=== PATIENT | male | born 2000 | race Caucasian/White ===

== ENCOUNTER 2020-09-06 16:41 | Emergency (ER) | payer OTHER ==
[2020-09-06] MEDS ORDERED: VIBRAMYCIN100 MG PO (20:42)
[2020-09-10 16:10] LABS: CHLAMYDIA BY NAA Negative (Negative); GONOCOCCUS BY NAA Negative (Negative); TRICH VAG BY NAA Negative (Negative)
== END 2020-09-06 21:02 | disposition home or self-care (01) ==
LOC: ER1 16:41
PROVIDERS: Emergency Medicine
DX: N48.5 Ulcer of penis (principal); Z88.0 Allergy status to penicillin; F17.210 Nicotine dependence, cigarettes, uncomplicated; Z88.8 Allergy status to other drugs, medicaments and biological substances
CPT/HCPCS: 81001; 87661; 96372; 99283; J0696

== ENCOUNTER 2020-10-16 00:40 | Emergency (ER) | payer OTHER ==
[~2020-10-16 00:40] MED LIST: VIBRAMYCIN100 MG PO
== END 2020-10-16 02:00 | disposition left against medical advice (07) ==
LOC: ER1 00:40
DX: Z53.21 Procedure and treatment not carried out due to patient leaving prior to being seen by health care provider (principal)

== ENCOUNTER 2020-10-18 17:01 | Emergency (ER) | payer OTHER ==
[2020-10-18 18:13] LABS: HEMOGLOBIN 14.9 gm/dl (14.0-17.5); RED BLOOD COUNT 4.78 M/UL (4.20-5.50); WHITE BLOOD COUNT 11.4 K/UL (4.5-11.0)
[2020-10-18 18:31] LABS: BUN/CREATININE RATIO 16 (0-10)
[2020-10-18] MEDS ORDERED: ZYRTEC10 MG PO (19:39)
== END 2020-10-18 20:00 | disposition home or self-care (01) ==
LOC: ER1 17:01
PROVIDERS: Preventive Medicine Occupational Medicine
DX: J30.2 Other seasonal allergic rhinitis (principal); F41.9 Anxiety disorder, unspecified; Z20.822 Contact with and (suspected) exposure to COVID-19; Z87.891 Personal history of nicotine dependence
CPT/HCPCS: 0240U; 71046; 80053; 81001; 83690; 85025; 85379; 85652; 86140; 87086; 94664; 94760; 99285

== ENCOUNTER 2020-11-26 10:03 | Emergency (ER) | payer OTHER ==
[~2020-11-26 10:03] MED LIST changes: +ZYRTEC10 MG PO
[2020-11-26] MEDS ORDERED: AZITHROMYCIN250 MG PO (13:21)
[2020-11-26] MEDS ORDERED: PROAIR HFA8.5 GM INH (13:21)
[2020-11-26] MEDS ORDERED: PREDNISONE 20 M20 MG PO (13:21)
== END 2020-11-26 13:32 | disposition home or self-care (01) ==
LOC: ER1 10:03
DX: J98.01 Acute bronchospasm (principal); J32.9 Chronic sinusitis, unspecified; J02.0 Streptococcal pharyngitis; Z88.0 Allergy status to penicillin; Z79.899 Other long term (current) drug therapy; F17.200 Nicotine dependence, unspecified, uncomplicated; Z20.822 Contact with and (suspected) exposure to COVID-19
CPT/HCPCS: 0240U; 71045; 87081; 87880; 94664; 99285

== ENCOUNTER 2020-11-29 07:24 | Emergency (ER) | payer OTHER ==
[~2020-11-29 07:24] MED LIST changes: +AZITHROMYCIN250 MG PO; +PREDNISONE 20 M20 MG PO; +PROAIR HFA8.5 GM INH
== END 2020-11-29 08:40 | disposition home or self-care (01) ==
LOC: ER1 07:24
DX: J02.0 Streptococcal pharyngitis (principal)
CPT/HCPCS: 71045; 86403; 99285

== ENCOUNTER → 2021-01-09 | Outpatient (CLI) | payer OTHER | LOC: EXRD 14:54 | DX: N50.812 Left testicular pain (principal) | CPT/HCPCS: 76870 ==